=== PATIENT | male | born 1945 | race Caucasian/White ===

== ENCOUNTER 2016-09-03 08:58 | Inpatient (IN) | payer OTHER ==
[~2016-09-03] VITALS: Ht 180.3 cm; Wt 98.4 kg
[2016-09-03] MEDS: VITAMIN D 1,000 INTERNATIONAL UNITS TABLET PO SCH ×2 (09:00→21:08)
[2016-09-03] MEDS: VITAMIN B COMPLEX/VIT C CAP PO SCH (09:00)
[2016-09-03] MEDS ORDERED: ONDANSETRON 4MG/2ML VIAL (J2405) IV ONE (09:30)
[2016-09-03] MEDS: MORPHINE 2 MG/ML 1ML SYRINGE IV PRN ×2 (09:40→10:58)
[2016-09-03 10:05] LABS: BASO % 0.2 % (0.0-1.0); EOS % 0.3 % (0.0-3.0); LARGE UNSTAINED CELL # 0.1 K/mm3 (0.0-0.4); LARGE UNSTAINED CELL % 0.6 % (0.0-4.0); LYMPH # 1.4 K/mm3 (1.5-4.5); LYMPH % 8.7 % (24.0-44.0); MEAN CORPUSCULAR HEMOGLOBIN 31.5 pg (27.0-33.0); MEAN CORPUSCULAR HGB CONC 34.4 g/dl (32.0-36.5); MEAN CORPUSCULAR VOLUME 91.8 fl (80.0-96.0); MONO # 0.5 K/mm3 (0.0-0.8); MONO % 3.3 % (0.0-5.0); NEUTROPHILS # 13.2 K/mm3 (1.8-7.7); PLATELET COUNT, AUTOMATED 262 k/mm3 (150-450); RED CELL DISTRIBUTION WIDTH 13.2 % (11.5-14.5); WHITE BLOOD COUNT 15.2 K/mm3 (4.0-10.0)
[2016-09-03] MEDS ORDERED: METO100T PO ×2 (10:15→11:51)
[2016-09-03] MEDS ORDERED: XARE20TA PO (10:15)
[2016-09-03] MEDS ORDERED: VITATAB11 PO (10:15)
[2016-09-03] MEDS ORDERED: METF500T4 PO (10:15)
[2016-09-03] MEDS ORDERED: ATOR1TAB19 PO (10:15)
[2016-09-03] MEDS ORDERED: HYDR-3713 PO (10:15)
[2016-09-03] MEDS ORDERED: VITA200015 PO (10:15)
[2016-09-03] MEDS ORDERED: VALSARTAN-HCTZ PO (10:15)
[2016-09-03] MEDS ORDERED: GARL1CAP PO (10:15)
[2016-09-03] MEDS ORDERED: ASPI81CH PO (10:15)
[2016-09-03] MEDS ORDERED: CLON0.2T PO (10:15)
[2016-09-03] MEDS ORDERED: DIGO0.12 PO ×2 (10:15)
[2016-09-03] MEDS ORDERED: AMLO10TA2 PO (10:15)
[2016-09-03 10:17] LABS: ALBUMIN 3.7 GM/DL (3.2-5.2); ALBUMIN/GLOBULIN RATIO 1.23 (1.00-1.93); ALKALINE PHOSPHATASE 33 U/L (45-117); ALT/SGPT 32 U/L (12-78); ANION GAP 12 MEQ/L (8-16); AST/SGOT 17 U/L (15-37); BILIRUBIN,DIRECT < 0.1 MG/DL (0.0-0.2); BILIRUBIN,TOTAL 0.5 MG/DL (0.2-1.0); BLOOD UREA NITROGEN 19 MG/DL (7-18); CARBON DIOXIDE LEVEL 27 MEQ/L (21-32); CHLORIDE LEVEL 104 MEQ/L (98-107); GLOMERULAR FILTRATION RATE > 60.0 (>49); GLUCOSE, FASTING 174 MG/DL (80-110); POTASSIUM SERUM 3.8 MEQ/L (3.5-5.1); SODIUM LEVEL 143 MEQ/L (136-145); TOTAL PROTEIN 6.7 GM/DL (6.4-8.2)
--- NOTE | 2016-09-03 10:18 | REP ---
Portable chest: Single view. History: Swelling. Comparison study: Comparison chest x-ray March 26, 2015. Findings: The lungs are well inflated and clear. EKG monitoring electrodes are seen. Pleural angles are sharp. Cardiomediastinal silhouette is unremarkable and unchanged. Pulmonary vasculature is not increased Impression: . No active disease. Signed by Gume Mirza MD 09/03/2016 10:10 A
[2016-09-03 10:20] LABS: INR 1.5
--- NOTE | 2016-09-03 10:24 | REP ---
Right hip: two views. History: Swelling. Findings: AP and frog-leg views of the right hip demonstrate old posttraumatic deformity from healed mid shaft fracture of the right femur showing persistent apex lateral angulation. Vascular calcification is noted. The femoral head is smooth and rounded. There are some periarticular soft tissue calcifications at the superior margin of the hip joint and there is mild femoral acetabular spurring consistent with osteoarthritis. No acute fracture or bony destructive lesion seen. Impression: Mild right hip joint osteoarthritis. Periarticular soft tissue calcifications. Old healed fracture right femur. No acute bony abnormality. Signed by Gume Mirza MD 09/03/2016 01:13 P
--- NOTE | 2016-09-03 10:25 | REP ---
Right femur: Two views. History: Swelling. Findings: There is old post-traumatic deformity of the right femur due to an old healed mid shaft fracture. There is some persistent apex lateral angulation. Vascular calcification is noted. No soft tissue gas or mass lesion is seen. There is moderate osteoarthritis at the knee. No acute bony abnormality. Impression: No acute bony abnormality. Signed by Gume Mirza MD 09/03/2016 01:13 P
[2016-09-03 10:49] LABS: ERYTHROCYTE SEDIMENTATION RATE 5 mm/hr (0-20)
--- NOTE | 2016-09-03 10:49 | REP ---
Duplex extremity venous ultrasound: Right lower extremity History: Right thighs swelling. Question DVT, question pseudoaneurysm. Patient on anticoagulant therapy. No recent injury or procedure. Findings: The deep veins are anechoic and fully compressible from the groin to the popliteal fossa in the right lower extremity. Color flow imaging is homogeneous. Spectral Doppler interrogation demonstrates intact respiratory variation in flow and normal manual augmentation of flow. There is no evidence of deep vein thrombosis. There is a 5.3 x 1.5 x 3.7 cm Rudd's cyst in the posterior popliteal soft tissues. Also noted in the proximal thigh in the area of swelling is a hypoechoic irregularly shaped collection consistent with hematoma. This measures 12.1 x 3.2 x 4.7 cm. It does not appear to communicate with the femoral artery. No evidence of pseudoaneurysm. Impression: 1. Negative right lower extremity duplex venous ultrasound. No evidence of deep vein thrombosis. 2. 12.1 x 4.7 x 3.2 cm hematoma in the proximal thigh soft tissues. No evidence of pseudoaneurysm. 3. Rudd's cyst. Signed by Gume Mirza MD 09/03/2016 10:40 A
[2016-09-03] MEDS ORDERED: MORPHINE 4 MG/ML 1ML SYRINGE As Ordered ONE (11:25)
[2016-09-03] MEDS ORDERED: DIOV160T8 PO (11:39)
[2016-09-03] MEDS ORDERED: PROBCAP4 PO (11:39)
[2016-09-03] MEDS ORDERED: MELA3TAB PO (11:42)
[2016-09-03] MEDS ORDERED: ACET50TAOT PO (11:42)
[2016-09-03] MEDS ORDERED: DIGOXIN 0.125 MG TAB PO ONE (11:45)
[2016-09-03] MEDS ORDERED: METOPROLOL TARTRATE 100 MG TAB PO ONE (11:45)
[2016-09-03] MEDS ORDERED: VALSARTAN 80 MG TAB (DIOVAN) PO ONE (11:45)
[2016-09-03] MEDS ORDERED: MORPHINE 4 MG/ML 1ML SYRINGE IV ONE (11:45)
[2016-09-03] MEDS ORDERED: amLODIPine 5 MG TAB PO ONE (11:45)
[2016-09-03] MEDS ORDERED: cloNIDine 0.2 MG TAB PO ONE (11:45)
[2016-09-03] MEDS ORDERED: hydroCHLOROthiazide 25 MG TAB PO ONE (11:45)
[2016-09-03] MEDS ORDERED: ASPI1TAB PO (11:51)
[2016-09-03] MEDS ORDERED: METF-415 PO (11:51)
[2016-09-03] MEDS ORDERED: ONDANSETRON 4MG/2ML VIAL (J2405) IV PRN (12:00)
[2016-09-03] MEDS: HumaLOG INSULIN (NovoLOG) PER UNIT SC SCH ×3 (12:00→21:22)
[2016-09-03] MEDS ORDERED: GLUCAGON FOR INJ 1 MG VIAL (J1610) SC PRN (12:00)
[2016-09-03] MEDS ORDERED: DEXTROSE 50% 50 ML SYRINGE IV PRN (12:00)
[2016-09-03] MEDS ORDERED: GLUCOSE 4 GM CHEW TABLET PO PRN (12:00)
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
[2016-09-03 15:31] VITALS: BP 107/60
[2016-09-03 16:18] VITALS: BP 108/63
[2016-09-03] MEDS: NORCO, ANEXSIA 5/325MG TABLET (HYDROcodone/ACETAMINOPHEN) PO PRN ×2 (16:48→23:32)
[2016-09-03] MEDS ORDERED: MORPHINE 2 MG/ML 1ML SYRINGE IV PRN (20:00)
[2016-09-03 20:41] VITALS: BP 123/62
[2016-09-03] MEDS: LACTOBACILLUS ACIDOPHILUS CAP (BACID) PO SCH (21:08)
[2016-09-03] MEDS: amLODIPine 10 MG TAB PO SCH (21:09)
[2016-09-03] MEDS: METOPROLOL TARTRATE 100 MG TAB PO SCH (21:09)
[2016-09-03] MEDS: ATORVASTATIN 10 MG TAB PO SCH (21:09)
[2016-09-03] MEDS: cloNIDine 0.2 MG TAB PO SCH (21:09)
[2016-09-03] MEDS ORDERED: SLF 3 ML SYR IV PRN (21:15)
[2016-09-03] MEDS: SLF 3 ML SYR IV SCH (22:33)
[2016-09-03 23:35] VITALS: BP 129/60
[2016-09-04] MEDS: NORCO, ANEXSIA 5/325MG TABLET (HYDROcodone/ACETAMINOPHEN) PO PRN ×2 (04:29→10:28)
[2016-09-04 04:32] LABS: MEAN CORPUSCULAR HEMOGLOBIN 30.9 pg (27.0-33.0); MEAN CORPUSCULAR HGB CONC 34.1 g/dl (32.0-36.5); MEAN CORPUSCULAR VOLUME 90.6 fl (80.0-96.0); RED CELL DISTRIBUTION WIDTH 13.2 % (11.5-14.5); WHITE BLOOD COUNT 13.8 K/mm3 (4.0-10.0)
[2016-09-04 04:55] LABS: CALCIUM LEVEL 8.3 MG/DL (8.8-10.2); CREATININE FOR GFR 1.38 MG/DL (0.70-1.30); GLOMERULAR FILTRATION RATE 54.5 (>49); POTASSIUM SERUM 4.1 MEQ/L (3.5-5.1)
[2016-09-04 05:01] VITALS: BP 104/58
[2016-09-04] MEDS: SLF 3 ML SYR IV SCH ×3 (06:12→21:27)
[2016-09-04 07:20] VITALS: BP 140/97
[2016-09-04] MEDS: HumaLOG INSULIN (NovoLOG) PER UNIT SC SCH ×4 (08:45→21:00)
[2016-09-04] MEDS: VITAMIN D 1,000 INTERNATIONAL UNITS TABLET PO SCH ×2 (08:46→21:21)
[2016-09-04] MEDS: METOPROLOL TARTRATE 100 MG TAB PO SCH ×2 (08:46→21:26)
[2016-09-04] MEDS: cloNIDine 0.2 MG TAB PO SCH ×2 (08:46→21:27)
[2016-09-04] MEDS: DIGOXIN 0.125 MG TAB PO SCH (08:47)
[2016-09-04] MEDS ORDERED: VALSARTAN 80 MG TAB (DIOVAN) PO SCH (09:00)
[2016-09-04] MEDS ORDERED: hydroCHLOROthiazide 25 MG TAB PO SCH (09:00)
[2016-09-04] MEDS: VITAMIN B COMPLEX/VIT C CAP PO SCH (09:50)
[2016-09-04 12:00] VITALS: BP 132/88
--- NOTE | 2016-09-04 13:54 | IPNPDOC ---
Subjective Date Seen The patient was seen on 09/04/16. Subjective Chief Complaint/HPI The patient is a 70-year-old male admitted with a reason for visit of Hematoma. General: Denies: Chills, Night Sweats Constitutional: Denies: Chills, Fever Eyes: Denies: Pain, Vision change ENT: Denies: Ear Pain, Head Aches Skin: Denies: Lesions, Rash Pulmonary: Denies: Cough, Dyspnea Cardiovascular: Denies: Chest Pain, Palpitations Gastrointestinal: Denies: Nausea, Vomiting Genitourinary: Denies: Dysuria, Frequency Hematologic: Reports: Bruising Musculoskeletal: Reports: Leg Pain Objective Physical Examination General Exam: Positive: Alert, Cooperative, Mild Distress ENT Exam: Positive: Atraumatic, Mucous membr. moist/pink Neck Exam: Negative: JVD Chest Exam: Positive: Clear to auscultation, Normal air movement Heart Exam: Positive: Irregular Rhythm, Tachycardic Telemetry: Positive: Atrial fibrillation Abdomen Exam: Positive: Soft, Negative: Tenderness Extremity Exam: Positive: Other (RLE swelling markedly improved compared to yesterday. Patient with improved ROM on hip and knee flexion.), Swelling Assessment /Plan Plan/VTE VTE Prophylaxis Ordered?: Yes (SCDs) Plan Right lower extremity hematoma Ultrasound of the right lower extremity, as well as x-ray imaging noted The patient neurovascularly intact distally on the right lower extremity The patient's blood pressure remains stable Orthopedic surgery consult appreciated At this time we will hold the patient's Xarelto and aspirin given the findings of hematoma. I have discussed with the patient the increased risk of stroke related with withholding anticoagulation and anti-platelet therapy at this time and he has verbalized understanding of the same. The patient's right lower extremity swelling appears much improved today, the patient will start physical therapy today as per orthopedic surgery recommendation We will continue to monitor his hemoglobin level as it has dropped 2.5 gram's since yesterday-the patient remains asymptomatic and complains of no shortness of breath, chest pain, or lightheadedness/dizziness Atrial fibrillation with rapid ventricular rate Heart rate much better controlled today with heart rate between 70s and 90s Continue metoprolol and digoxin We will withhold Xarelto secondary to above The patient does follow with Dr. Delong of cardiology as an outpatient, and recently saw him 6 weeks ago. Acute kidney injury Serum creatinine noted to mildly elevated at 1.3 today Will hold nephrotoxins Encourage by mouth intake of fluids We will recheck BMP in the a.m. Hypertension Continue clonidine, Norvasc History of TIA/CVA Continue statin, will hold aspirin at this time secondary to above Non-insulin dependent diabetes mellitus Continue insulin sliding scale Dyslipidemia Continue statin History of chronic knee and back pain Continue when necessary narcotics DVT prophylaxis-SCDs Disposition: We will continue to monitor the patient's hemoglobin level, and see how the patient does with physical therapy. Anticipate discharge in 24 hours pending clinical improvement and clearance by PT. VS, I&O, 24H, Fishbone Vital Signs/I&O Vital Signs Date Time Temp Pulse Resp B/P Pulse Ox O2 Delivery O2 Flow Rate FiO2 09/04/16 12:00 98.6 80 20 132/88 97 Room Air I&O- Last 24 Hours up to 6 AM 09/04/16 06:00 Intake Total 840 ml Output Total 800 ml Balance 40 ml Laboratory Data 24H LABS Laboratory Tests 2 09/03/16 18:07: Bedside Glucose (Misc Panel) 115 09/03/16 21:12: Bedside Glucose (Misc Panel) 121H 09/04/16 04:21: Anion Gap 7L, Blood Urea Nitrogen 30#H, Creatinine 1.38H, Sodium Level 145, Potassium Level 4.1, Chloride Level 106, Carbon Dioxide Level 32, Calcium Level 8.3L, Glomerular Filtration Rate 54.5 09/04/16 11:44: Bedside Glucose (Misc Panel) 117H CBC/BMP Laboratory Tests 09/03/16 14:56 09/03/16 21:07 09/04/16 04:21 Calcium Level 8.3 L, Red Blood Count 3.40 L, Mean Corpuscular Volume 90.6, Mean Corpuscular Hemoglobin 30.9, Mean Corpuscular Hemoglobin Concent 34.1, Red Cell Distribution Width 13.2 09/04/16 08:53 Microbiology Microbiology 09/03/16 Blood Culture - Preliminary, Resulted No growth after 24 hours . All specim... 09/03/16 Blood Culture - Preliminary, Resulted No growth after 24 hours . All specim... ROXANE VIDALES MD Sep 04, 2016 13:54
[2016-09-04 16:00] VITALS: BP 128/70
[2016-09-04] MEDS ORDERED: NS 1,000 ML IV SCH (18:00)
[2016-09-04 20:00] VITALS: BP 121/55; PULSE 126
[2016-09-04] MEDS: ATORVASTATIN 10 MG TAB PO SCH (21:21)
[2016-09-04] MEDS: LACTOBACILLUS ACIDOPHILUS CAP (BACID) PO SCH (21:21)
[2016-09-04] MEDS: amLODIPine 10 MG TAB PO SCH (21:27)
[2016-09-04 23:59] VITALS: BP 133/69
[2016-09-05] VITALS: PULSE 86
[2016-09-05] MEDS: NORCO, ANEXSIA 5/325MG TABLET (HYDROcodone/ACETAMINOPHEN) PO PRN (00:09)
[2016-09-05] MEDS: SLF 3 ML SYR IV SCH (00:14)
[2016-09-05 04:00] VITALS: BP 133/66; PULSE 77
[2016-09-05 05:42] LABS: MEAN CORPUSCULAR HEMOGLOBIN 31.7 pg (27.0-33.0); MEAN CORPUSCULAR HGB CONC 34.3 g/dl (32.0-36.5); MEAN CORPUSCULAR VOLUME 92.4 fl (80.0-96.0); WHITE BLOOD COUNT 13.4 K/mm3 (4.0-10.0)
[2016-09-05 05:44] VITALS: BP 133/66
[2016-09-05 05:57] LABS: ANION GAP 6 MEQ/L (8-16); BLOOD UREA NITROGEN 22 MG/DL (7-18); CARBON DIOXIDE LEVEL 30 MEQ/L (21-32); CHLORIDE LEVEL 111 MEQ/L (98-107); CREATININE FOR GFR 0.81 MG/DL (0.70-1.30); GLOMERULAR FILTRATION RATE > 60.0 (>49); GLUCOSE, FASTING 108 MG/DL (80-110); POTASSIUM SERUM 4.1 MEQ/L (3.5-5.1); SODIUM LEVEL 147 MEQ/L (136-145)
[2016-09-05 07:20] VITALS: BP 134/67
[2016-09-05] MEDS: HumaLOG INSULIN (NovoLOG) PER UNIT SC SCH (08:18)
[2016-09-05] MEDS: cloNIDine 0.2 MG TAB PO SCH (08:18)
[2016-09-05] MEDS: VITAMIN D 1,000 INTERNATIONAL UNITS TABLET PO SCH (08:19)
[2016-09-05] MEDS: DIGOXIN 0.125 MG TAB PO SCH (08:19)
[2016-09-05] MEDS: METOPROLOL TARTRATE 100 MG TAB PO SCH (08:19)
[2016-09-05] MEDS: VITAMIN B COMPLEX/VIT C CAP PO SCH (08:19)
--- NOTE | 2016-09-05 14:07 | DS.PDOC ---
Discharge Summary General Date of Admission Sep 03, 2016 at 12:00 Date of Discharge Sep 05, 2016 at 12:58 Specialist/Consultants Involve Dr. Mandeep Felix of [facility] Discharge Summary PROCEDURES PERFORMED DURING STAY: None. ADMITTING DIAGNOSES: 1. . Right lower extremity hematoma 2. . Acute kidney injury 3. . DISCHARGE DIAGNOSES: 1. . Right lower extremity hematoma 2. . Acute kidney injury 3. . COMPLICATIONS/CHIEF COMPLAINT: Hematoma. HISTORY OF PRESENT ILLNESS: . 70-year-old male with past medical history of [id number] diabetes, hypertension, obesity, atrial fibrillation on Xarelto, dyslipidemia, chronic knee pain, and TIA/CVA presented to the ER with increasing pain in his right leg. The patient states that he was leaning against a rail yesterday while trying to push away a skunk with a shovel from his property. The patient states that he subsequently developed intense pain along his right thigh. The patient subsequently presented to the ER for further evaluation. The patient denies any trauma or falls. In the ER, the patient was noted to have a 12.1 x 3.2 x 4.7 centimeter hematoma in the proximal thigh on the right. The ultrasound of the extremity did not reveal any evidence of pseudoaneurysm or underlying DVT. An x-ray of the right hip and femur did not reveal any acute fractures. The patient's blood pressure was noted to be stable as well as his hemoglobin level. The patient will be admitted under the hospitalist service for observation of the hematoma. During the patient's stay in the hospital here, he was evaluated by Dr. Felix of orthopedic surgery for the hematoma in his right lower extremity. Dr. Felix recommended that we observe the patient's right lower extremity, and indicated there was no signs of compartment syndrome. The patient was admitted to the stepdown unit where the right lower extremity hematoma was monitored over the next 48 hours. During this time, the patient's proximal thigh notably improved, and he was able to ambulate in physical therapy did clear the patient to go home. The patient remained hemodynamically stable, did not have any complaints of shortness of breath, chest pain, palpitations, lightheadedness/dizziness. The patient's hemoglobin count did drop over the first 24 hours, but I do think this was a combination of dilution secondary to volume repletion and mild blood loss from the hematoma. Of note, during the patient's hospitalization his aspirin and Xarelto medications were held secondary to the hematoma. I did discuss the risks of increased possibility of stroke given the holding of his antiplatelet and anti-coagulation therapy. However, after discussing the risks and benefits associated with this, the patient has acknowledged that holding this therapy would be in the best interest given the patient's current hematoma , and the possibility of the hematoma expanding and possibly resulting in compartment syndrome if antiplatelet/anticoagulation therapy was resumed too soon. At this time, I have advised the patient to follow-up with his primary care physician and sheet sewer within the next 7 days to reassess the patient' s right lower extremity hematoma to ascertain when to restart the aspirin and Xarelto therapies. DISCHARGE MEDICATIONS: Please see below. ALLERGIES: Please see below. PHYSICAL EXAMINATION ON DISCHARGE: VITAL SIGNS: Please see below. General Exam: Positive: Alert, Cooperative, Mild Distress ENT Exam: Positive: Atraumatic, Mucous membr. moist/pink Neck Exam: Negative: JVD Chest Exam: Positive: Clear to auscultation, Normal air movement Heart Exam: Positive: Irregular Rhythm, Tachycardic Telemetry: Positive: Atrial fibrillation Abdomen Exam: Positive: Soft, Negative: Tenderness Extremity Exam: Positive: Other (RLE swelling markedly improved compared to yesterday. Patient with improved ROM on hip and knee flexion.), Swelling LABORATORY DATA: Please see below. IMAGING: Duplex extremity venous ultrasound: Right lower extremity History: Right thighs swelling. Question DVT, question pseudoaneurysm. Patient on anticoagulant therapy. No recent injury or procedure. Findings: The deep veins are anechoic and fully compressible from the groin to the popliteal fossa in the right lower extremity. Color flow imaging is homogeneous. Spectral Doppler interrogation demonstrates intact respiratory variation in flow and normal manual augmentation of flow. There is no evidence of deep vein thrombosis. There is a 5.3 x 1.5 x 3.7 cm Rudd's cyst in the posterior popliteal soft tissues. Also noted in the proximal thigh in the area of swelling is a hypoechoic irregularly shaped collection consistent with hematoma. This measures 12.1 x 3.2 x 4.7 cm. It does not appear to communicate with the femoral artery. No evidence of pseudoaneurysm. Impression: 1. Negative right lower extremity duplex venous ultrasound. No evidence of deep vein thrombosis. 2. 12.1 x 4.7 x 3.2 cm hematoma in the proximal thigh soft tissues. No evidence of pseudoaneurysm. 3. Rudd's cyst. X-ray imaging of the hip and femur with no acute fractures noted. PROGNOSIS: Medically stable at this time ACTIVITY: As tolerated. DIET: . 2 g low sodium diet DISCHARGE PLAN: DISPOSITION: 01 Home, Self-Care. DISCHARGE INSTRUCTIONS: 1. . Follow-up with primary care physician and sheet sewer within 7 days for further evaluation of right lower extremity hematoma, and further assessment on when to resume antiplatelet and anticoagulation therapy. 2. . Patient advised to return to the ER if hematoma expands, or he experiences an increase in pain, or any neurovascular complications such as numbness, tingling, loss of distal pulse DISCHARGE CONDITION: Stable. TIME SPENT ON DISCHARGE: Greater than 30 minutes. Vital Signs/I&Os Vital Signs Date Time Temp Pulse Resp B/P Pulse Ox O2 Delivery O2 Flow Rate FiO2 09/05/16 08:19 80 09/05/16 07:20 96.4 20 134/67 98 Room Air I&O- Last 24 Hours up to 6 AM 09/05/16 06:00 Intake Total 2680 ml Output Total 1600 ml Balance 1080 ml Laboratory Data Labs 24H Laboratory Tests 2 09/04/16 17:03: Bedside Glucose (Misc Panel) 130H 09/04/16 21:31: Bedside Glucose (Misc Panel) 133H 09/05/16 04:49: Anion Gap 6L, Blood Urea Nitrogen 22H, Creatinine 0.81, Sodium Level 147H, Potassium Level 4.1, Chloride Level 111H, Carbon Dioxide Level 30, Calcium Level 8.0L, Glomerular Filtration Rate > 60.0 CBC/BMP Laboratory Tests 09/05/16 04:49 Calcium Level 8.0 L, Red Blood Count 3.15 L, Mean Corpuscular Volume 92.4, Mean Corpuscular Hemoglobin 31.7, Mean Corpuscular Hemoglobin Concent 34.3, Red Cell Distribution Width 13.0 FSBS Laboratory Tests Test 09/04/16 17:03 09/04/16 21:31 Range/Units Bedside Glucose (Misc Panel) 130 133 80-115 MG/DL Microbiology Microbiology 09/03/16 Blood Culture - Preliminary, Resulted No Growth after 48 hours. All Specime... 09/03/16 Blood Culture - Preliminary, Resulted No Growth after 48 hours. All Specime... Discharge Medications Scheduled (Garlic) 1,000 Mg Cap 1,000 MG PO BID (Reported) (Diovan Hct 160-25 mg) 1 Tab Tab 1 TAB PO DAILY (Reported) Amlodipine Besylate (Amlodipine Besylate) 10 Mg Tab 10 MG PO QPM (Reported) TAKES WITH DINNER Atorvastatin Calcium (Atorvastatin Calcium) 10 Mg Tab 10 MG PO QPM (Reported) TAKES WITH DINNER B1/B2/B3/B5/B6 (Vitamin B Complex) 1 Tab Tab 1 TAB PO DAILY (Reported) Cholecalciferol (Vitamin D) 2,000 Unit Tab 2,000 UNIT PO BID (Reported) Clonidine Hydrochloride (Clonidine HCl) 0.2 Mg Tab 2 TAB PO BID (Reported) Digoxin (Digoxin) 0.125 Mg Tab 1 TAB PO DAILY (Reported) Lactobacillus Acidophilus (Probiotic) 1 Cap Cap 1 CAP PO QPM (Reported) TAKES WITH DINNER Melatonin (Melatonin) 3 Mg Tab 3 MG PO QHS (Reported) Metformin Hydrochloride (Metformin HCl ER) 500 Mg Tab 500 MG PO QAM (Reported) Metformin Hydrochloride (Metformin HCl ER) 1,000 Mg Tab 1,000 MG PO QPM ( Reported) Metoprolol Tartrate (Metoprolol Tartrate) 100 Mg Tab 100 MG PO BID (Reported) Scheduled PRN Acetaminophen (Acetaminophen) 500 Mg Tab 500 MG PO Q6H PRN PRN PAIN (Reported) Acetaminophen/Hydrocodone (Hydrocodone/Acetaminophen 5-325 mg) 1 Tab Tab 1 TAB PO Q6H PRN PRN PAIN (Reported) Allergies Coded Allergies: Iodine (Verified Allergy, Intermediate, RASH, 09/03/16) Banana (Verified Allergy, Unknown, 09/03/16) ROXANE VIDALES MD Sep 05, 2016 14:07
== END 2016-09-05 12:58 | disposition home or self-care (01) | DRG 556 ==
LOC: EDBD 08:58 → M ED 09:14 → M ED INP 12:00 → M PCU 16:04
PROVIDERS: ADMIT Internal Medicine; ATTEND Internal Medicine
DX: M79.81 Nontraumatic hematoma of soft tissue (principal); N17.9 Acute kidney failure, unspecified; E11.9 Type 2 diabetes mellitus without complications; I10 Essential (primary) hypertension; E66.9 Obesity, unspecified; I48.91 Unspecified atrial fibrillation; M54.9 Dorsalgia, unspecified; M25.569 Pain in unspecified knee; E78.5 Hyperlipidemia, unspecified; I25.10 Atherosclerotic heart disease of native coronary artery without angina pectoris; Z86.73 Personal history of transient ischemic attack (TIA), and cerebral infarction without residual deficits; Z79.82 Long term (current) use of aspirin; Z79.84 Long term (current) use of oral hypoglycemic drugs; Z79.899 Other long term (current) drug therapy; Z88.8 Allergy status to other drugs, medicaments and biological substances; Z91.018 Allergy to other foods; Z68.30 Body mass index [BMI] 30.0-30.9, adult

== ENCOUNTER 2017-10-13 10:21 | Day surgery (SDC) | payer OTHER ==
[2017-10-13] MEDS: NS 1,000 ML IV (10:30)
[2017-10-13] MEDS ORDERED: PROPOFOL 200 MG/20 ML VIAL As Ordered (10:56)
== END 2017-10-13 12:10 | disposition home or self-care (01) ==
LOC: M OPP 10:21
DX: Z12.11 Encounter for screening for malignant neoplasm of colon (principal); D12.3 Benign neoplasm of transverse colon; K64.0 First degree hemorrhoids; K57.30 Diverticulosis of large intestine without perforation or abscess without bleeding; I48.91 Unspecified atrial fibrillation; I10 Essential (primary) hypertension; I25.10 Atherosclerotic heart disease of native coronary artery without angina pectoris; E78.5 Hyperlipidemia, unspecified; E11.9 Type 2 diabetes mellitus without complications; M19.90 Unspecified osteoarthritis, unspecified site; J44.9 Chronic obstructive pulmonary disease, unspecified; G47.30 Sleep apnea, unspecified; R06.83 Snoring; F17.210 Nicotine dependence, cigarettes, uncomplicated; Z88.3 Allergy status to other anti-infective agents; Z91.018 Allergy to other foods; Z79.84 Long term (current) use of oral hypoglycemic drugs; Z79.01 Long term (current) use of anticoagulants; Z79.899 Other long term (current) drug therapy
CPT/HCPCS: 45380

== ENCOUNTER 2020-10-07 14:39 | Inpatient (IN) | payer MEDICARE, OTHER ==
[~2020-10-07] VITALS: Ht 180.3 cm; Wt 89.1 kg
[~2020-10-07 14:39] MED LIST: ACET500T15 PO; AMLO1TAB25 PO; ASPI81CH49 PO; ASPI81TA26 PO; ATOR1TAB19 PO; CLON0.2T PO; DIGO0.12 PO; DIOV160T9 PO; GARL10004 PO; HYDR-3713 PO; MELA3TAB70 PO; METF-415 PO; METF-838 PO; METO100T5 PO; PROBCAP4 PO; VALSARTAN-HCTZ PO; VITA200015 PO; VITATAB11 PO; XARE20TA PO
--- NOTE | 2020-10-07 16:13 | REP ---
INDICATION: R/O COMPARTMENT SYNDROME COMPARISON: None. TECHNIQUE: Real time compression and duplex Doppler interrogation of the left lower extremity deep venous system is performed. FINDINGS: The left common femoral, superficial femoral and popliteal veins are fully compressible with transducer pressure and demonstrate normal spontaneous and phasic flow, without evidence of deep venous thrombosis. Popliteal cyst measures 5.3 x 2.7 x 1.6 cm. Heterogeneous complex mass in the left thigh soft tissues is intramuscular and measures 15.5 x 5.5 x 4.7 cm. This probably represents an intramuscular hematoma. IMPRESSION: No evidence of deep venous thrombosis of the left lower extremity femoral popliteal venous system. Popliteal cyst measures 5.3 x 2.7 x 1.6 cm. Heterogeneous complex mass in the left thigh soft tissues is intramuscular and measures 15.5 x 5.5 x 4.7 cm. This probably represents an intramuscular hematoma. <Electronically signed by Fco Hughes > 10/07/20 [id number]
[2020-10-07 19:45] LABS: BASO % 0.3 % (0.0-1.0); EOS # 0.1 10^3/uL (0.0-0.5); EOS % 0.4 % (0.0-3.0); HEMATOCRIT 38.3 % (42.0-52.0); HEMOGLOBIN 12.8 g/dl (13.5-17.5); LYMPH # 1.5 10^3/uL (1.5-5.0); LYMPH % 10.5 % (24.0-44.0); MEAN CORPUSCULAR HEMOGLOBIN 31.1 pg (27.0-33.0); MEAN CORPUSCULAR HGB CONC 33.4 g/dl (32.0-36.5); MEAN CORPUSCULAR VOLUME 93.2 fl (80.0-96.0); MONO # 0.9 10^3/uL (0.0-0.8); MONO % 6.3 % (2.0-8.0); NEUTROPHILS # 11.4 10^3/uL (1.5-8.5); NEUTROPHILS % 81.9 % (36.0-66.0); PLATELET COUNT, AUTOMATED 258 10^3/uL (150-450); RED BLOOD COUNT 4.11 10^6/uL (4.30-6.10); WHITE BLOOD COUNT 13.9 10^3/uL (4.0-10.0)
[2020-10-07 19:56] LABS: INR 1.2; PARTIAL THROMBOPLASTIN TIME 26.1 SECONDS (24.2-38.5); PROTHROMBIN TIME 15.4 SECONDS (12.5-14.3)
[2020-10-07] MEDS ORDERED: NS 1,000 ML IV ONE (20:00)
[2020-10-07 20:06] LABS: ERYTHROCYTE SEDIMENTATION RATE 8 mm/hr (0-20)
[2020-10-07 20:09] LABS: ALBUMIN 3.4 GM/DL (3.2-5.2); BILIRUBIN,DIRECT 0.2 MG/DL (0.0-0.2); BILIRUBIN,TOTAL 0.5 MG/DL (0.2-1.0); C REACTIVE PROTEIN QUANTITATIV 0.95 MG/DL (0.00-0.30); TOTAL PROTEIN 6.3 GM/DL (6.4-8.2)
[2020-10-07] MEDS ORDERED: GARL1000 PO (20:33)
[2020-10-07] MEDS ORDERED: VITATAB73 PO (20:33)
[2020-10-07] MEDS ORDERED: DIGO0.123 PO (20:33)
[2020-10-07] MEDS ORDERED: LOSA50TA5 PO (20:33)
[2020-10-07] MEDS ORDERED: HYDR-4514 PO (20:33)
[2020-10-07] MEDS ORDERED: D31000TA2 PO (20:33)
--- NOTE | 2020-10-07 20:45 | REPVR ---
PROCEDURE INFORMATION: Exam: CT Left Lower Extremity Without Contrast; Thigh Exam date and time: 10/07/2020 8:08 PM Age: 74 years old Clinical indication: Swelling, leg or foot; Additional info: Swelling, hematoma TECHNIQUE: Imaging protocol: CT of the Left lower extremity without contrast was performed. Exam focused on the thigh. Radiation optimization: All CT scans at this facility use at least one of these dose optimization techniques: automated exposure control; mA and/or kV adjustment per patient size (includes targeted exams where dose is matched to clinical indication); or iterative reconstruction. COMPARISON: CR Femur 09/03/2016 9:54 AM FINDINGS: Bones/joints: There is no fracture, dislocation, or bony destructive changes involving the left hip, left femur, or left knee. There is severe osteoarthritis of the left knee, with degenerative changes that are most severe in the medial compartment. There is an 11 mm ossified body in the posterosuperior aspect of the intercondylar notch. There are 6 mm, 6 mm, an 8 mm ossified bodies in the left medial collateral ligament bursa. There is chondrocalcinosis in the lateral compartment of the left knee. A small left knee joint effusion is present. Soft tissues: There is a 10.8 cm x 7.7 cm x 22.3 cm acute hematoma in the proximal two thirds of the anterior compartment of the left thigh, predominantly within the left rectus femoris muscle. There is low-attenuation in the left iliopsoas and rectus femoris muscles, which may represent muscle strains or contusions. There is a 3.4 cm x 1.6 cm x 5.9 cm left popliteal cyst. Vasculature: There are extensive atherosclerotic calcifications. Limited bowel: There is severe sigmoid diverticulosis. The bowel was not fully imaged. Reproductive: The prostate gland is enlarged and measures 3.2 cm x 5.4 cm x 4.5 cm and the volume of the prostate gland is increased and measures 40.7 mL. There are calcifications in the prostate. Other findings: In the miller helper view, there is a chronic healed fracture deformity of the right mid femoral diaphysis, which has healed with varus angulation of the distal component of the fracture. Right total knee arthroplasty hardware is also seen in the miller helper view. IMPRESSION: 1. 10.8 cm x 7.7 cm x 22.3 cm acute hematoma in the proximal two thirds of the anterior compartment of the left thigh, predominantly within the left rectus femoris muscle. 2. Low-attenuation in the left iliopsoas and rectus femoris muscles, which may represent muscle strains or contusions. 3. Severe osteoarthritis of the left knee, ossified bodies in the left knee, and a small left knee joint effusion. 4. Severe sigmoid diverticulosis. 5. Enlarged prostate. Electronically signed by: Ras Abraham On 10/07/2020 20:46:31 PM
--- NOTE | 2020-10-07 21:10 | CR.PDOC ---
General Date of Consultation: Oct 07, 2020 Consultation REASON FOR CONSULTATION/CHIEF COMPLAINT: Concern for left thigh compartment syndrome HISTORY OF PRESENT ILLNESS: Yesterday evening, between 2100 and 2200h, the patient was moving materials when he lost his balance and impacted his thigh into a heavy duty metal table. He had pain and discomfort. He reports a history of thigh compartment syndrome in the past, where he denies any surgical intervention was performed. He stated that his thigh was swelling and he was concerned about developing compartment syndrome, so he presented to the ED for evaluation at around 1500h today. He is known to be on xarelto. He took this last on Wednesday evening, around 1900h. He did not take it today, but he took his ASA. He did report to the ED as he believed his thigh was getting larger. He does state that the skin is not "shiny" and tense like it was during his last episode of CS. The ED ordered an US of the thigh to r/o compartment syndrome, which showed a large hematoma, intramuscular. ALLERGIES: Please see below. PAST MEDICAL/SURGICAL HISTORY: To fibrillation on Xarelto Hypertension Hec-cxabkac-dznjhwyxh diabetes COPD Umbilical hernia repair Right knee replacement Endorses history of compartment syndrome affecting his left thigh however chart review shows it was perhaps his right thigh SOCIAL HISTORY: Endorses smoking Endorses drinking wine socially Denies illicit drug use FAMILY HISTORY: Reviewed and none contributory to this admission ALLERGIES: Please see below. REVIEW OF SYSTEMS: 10 point review of systems complete all negative otherwise stated in HPI HOME MEDICATIONS: Please see below. PHYSICAL EXAMINATION: VITAL SIGNS: Please see below. GENERAL APPEARANCE: Patient is alert and orientated. Dressed comfortably. No acute distress. HEENT: Normocephalic, Atraumatic RESPIRATORY: symmetric chest expansion CARDIOVASCULAR: palpable PT and DP pulses, bilaterally NEUROLOGICAL: sensation intact and comparable bilaterally to all foot distributions EXTREMITIES: on inspection, the right thigh shows a larger diametre compared to the left. The thigh shows tension anterolaterally. The thigh is compressible circumferentially. There is discomfort with this, but no disproportionate pain. The patient is able to flex and extend the ankle, actively. Passively, I was able to flex and extend the patients knee within a range of 0-45 degrees, without any pain or discomfort. Once the range of motion was increased above this the patient started to get pain and tightness in the anterior thigh. This was not disproportionate pain. There is no bruising to the skin anteriorly. Initial examination completed at ~1945 Patient reevaluated at 2114 Patient comfortable and in NAD. No change in signs or symptoms. Grossly NVI to Right lower extremity with no temperature difference between feet on palpation. Palpable PT and DP pulses. Diameter marked approximately mid upper 2/3rd of thigh with tape measure 60 cm, roughly. No concern for evolving compartment syndrome at this time. This is roughly 24 h post injury. Patient reevaluated at 2250 Patient sleeping in his bed and in no acute distress. No changes in signs or symptoms. Grossly neurovascularly intact. Right lower extremity with no temperature difference between feet on palpation. Palpable posterior tibial and dorsalis pedis pulses. Diameter marked approximately mid upper two thirds of 5, with tape measure 60 cm, roughly. No concern for evolving compartment syndrome at this time. The patient is over 24 hours post injury at this time. He will be reevaluated in the morning. LABORATORY DATA: Please see below. Imaging: US - No evidence of deep venous thrombosis of the left lower extremity femoral popliteal venous system. Popliteal cyst measures 5.3 x 2.7 x 1.6 cm. Heterogeneous complex mass in the left thigh soft tissues is intramuscular and measures 15.5 x 5.5 x 4.7 cm. This probably represents an intramuscular hematoma CT Scan - Pt reportedly has a contrast allergy, so this was not utilized. 1. 10.8 cm x 7.7 cm x 22.3 cm acute hematoma in the proximal two thirds of the anterior compartment of the left thigh, predominantly within the left rectus femoris muscle. 2. Low-attenuation in the left iliopsoas and rectus femoris muscles, which may represent muscle strains or contusions. ASSESSMENT/PLAN: 1. The patient shows findings consistent with a large intramuscular hematoma to the anterior thigh. He has had a history of left thigh compartment syndrome treated non operatively. The hematoma is likely associated with his medication xarelto. This is currently not being taken, though he has taken ASA today. He is comfortable and cooperative with the exam and his thigh, though tight, is compressible. I am able to passively flex and extend his knee in a 45 degree arc ROM without pain or discomfort. Deeper flexion causes pain and discomfort, most likely associated with the hematoma. At this point, clinically, the patient does not have a compartment syndrome, but he is still at risk for developing a compartment syndrome. The risks of a prophylactic fasciotomy outweigh the benefits at this time and I do not think it is indicated based on his presentation. He will be admitted for Observation for risk of developing a compartment syndrome. I have evaluated him at approximately 1930. I will reevaluate the patient serially this evening. Vital Signs/I&O Vital Signs Date Time Temp Pulse Resp B/P (MAP) Pulse Ox O2 Delivery O2 Flow Rate FiO2 10/07/20 17:33 10/07/20 14:40 98.1 86 18 100 Room Air Laboratory Data Labs 24H Laboratory Tests 2 10/07/20 19:37: Immature Granulocyte % (Auto) 0.6, Neutrophils (%) (Auto) 81.9H, Lymphocytes (%) (Auto) 10.5L, Monocytes (%) (Auto) 6.3, Eosinophils (%) (Auto) 0.4, Basophils (%) (Auto) 0.3, Neutrophils # (Auto) 11.4H, Lymphocytes # (Auto) 1.5, Monocytes # (Auto) 0.9H, Eosinophils # (Auto) 0.1, Basophils # (Auto) 0.0, Nucleated Red Blood Cells % (auto) 0.0, Erythrocyte Sedimentation Rate 8, Prothrombin Time 15.4H, Prothromb Time International Ratio 1.20, Activated Partial Thromboplast Time 26.1, Total Bilirubin 0.5, Direct Bilirubin 0.2, Aspartate Amino Transf (AST/SGOT) 17, Alanine Aminotransferase (ALT/SGPT) 29, Alkaline Phosphatase 38L, C-Reactive Protein, Quantitative 0.95H, Total Protein 6.3L, Albumin 3.4, Albumin/Globulin Ratio 1.2 10/07/20 19:38: POC Glucose (Misc Panel) 126H, POC Sodium (Misc Panel) 140, POC Potassium (Misc Panel) 4.2, POC Chloride (Misc Panel) 101, POC Total CO2 (Misc Panel) 28.0H, POC Blood Urea Nitrogen (Misc Panel 22, POC Ionized Calcium (Misc Panel) 4.7, POC Creatinine (Misc Panel) 1.4H, POC Hematocrit (Misc Panel) 38.0 CBC/BMP Laboratory Tests 10/07/20 19:37 Allergies Coded Allergies: banana (Verified Allergy, Unknown, 10/07/20) iodine (Verified Allergy, Unknown, 10/07/20) Home Medications Scheduled Amlodipine Besylate (Amlodipine Besylate) 10 Mg Tab, 10 MG PO QPM, (Reported) TAKES WITH DINNER Atorvastatin Calcium (Atorvastatin Calcium) 10 Mg Tab, 10 MG PO QPM, (Reported) TAKES WITH DINNER Cholecalciferol (Vitamin D3) (Vitamin D3) 1,000 Unit Tablet, 2,000 UNITS PO QHS, (Reported) Clonidine HCl (Clonidine HCl) 0.2 Mg Tab, 0.4 MG PO BID, (Reported) Digoxin (Digoxin) 125 Mcg Tablet, 125 MCG PO DAILY, (Reported) Losartan/Hydrochlorothiazide (Losartan-Hctz 50-12.5 mg Tab) 1 Each Tablet, 1 TAB PO DAILY, (Reported) Melatonin (Melatonin) 3 Mg Tab, 3 MG PO QHS, (Reported) Metformin HCl (Metformin HCl ER) 500 Mg Tab, 500 MG PO BID, (Reported) Metoprolol Tartrate (Metoprolol Tartrate) 100 Mg Tab, 100 MG PO BID, (Reported) Rivaroxaban (Xarelto) 20 Mg Tab, 20 MG PO QPM, (Reported) Vitamin B Complex (Vitamin B Complex) 1 Each Tablet, 1 TAB PO DAILY, (Reported) Scheduled PRN Acetaminophen (Acetaminophen) 500 Mg Tab, 500 MG PO Q6H PRN for PAIN, (Reported) Hydrocodone/Acetaminophen (Hydrocodone-Acetamin 7.5-325) 1 Each Tablet, 1 TAB PO Q6H PRN for PAIN, (Reported) LUI GUARDADO MD Oct 07, 2020 21:10
[2020-10-07] MEDS ORDERED: MOM 30ML SUSPENSION UDC PO PRN (21:35)
[2020-10-07] MEDS ORDERED: GLUCAGON INJ 1MG VIAL SC PRN (21:35)
[2020-10-07] MEDS ORDERED: DEXTROSE 50% 50 ML SYRINGE IV PRN (21:35)
[2020-10-07] MEDS ORDERED: MAALOX 30 ML SUSP *UDC PO PRN (21:35)
[2020-10-07] MEDS ORDERED: ACETAMINOPHEN TAB 650MG DOSE (2X325MG) PO PRN (21:35)
[2020-10-07] MEDS ORDERED: GLUCOSE 4GM CHEW TABLET PO PRN (21:35)
[2020-10-07 22:26] LABS: RSV AMPLIFICATION NEGATIVE (NEGATIVE)
--- NOTE | 2020-10-07 22:48 | HPEPDOC ---
[facility] Medical History & Physical Date of Admission Oct 07, 2020 Date of Service: Oct 07, 2020 History and Physical CHIEF COMPLAINT: Left thigh pain HISTORY OF PRESENT ILLNESS: 74-year-old male history of atrial fibrillation on Xarelto, gze-ispqydt-shhvraxpq diabetes, COPD, who presents with left thigh pain. Patient tells me that he was working in his workshop when he stumbled and ran into a heavy metal table the impact affecting the anterior aspect of his left thigh. Tells me he noticed the size of his thigh started to get larger and more tender which prompted him to present to the emergency department. Patient does have a history 2017 with similar episode where he endorses he has compartment syndrome and was treated nonoperatively and observed and was noted to have a hematoma that time affecting his right thigh. Here in the emergency department patient had an ultrasound to evaluate for compartment syndrome which revealed a large intramuscular hematoma. Orthopedic surgery Dr. Ritchie was consulted who is e valuated the patient and will serially examine the patient and manage him conservatively for now as clinically this does not look like compartment syndrome at this point in time. Patient will be admitted to the medical service for further management. On review of systems patient denies any chest pain shortness of breath abdominal pain or any other injury resulting from the impact. PAST MEDICAL/SURGICAL HISTORY: To fibrillation on Xarelto Hypertension Ufv-nbuizep-tisbmyvju diabetes COPD Umbilical hernia repair Right knee replacement Endorses history of compartment syndrome affecting his left thigh however chart review shows it was perhaps his right thigh SOCIAL HISTORY: Endorses smoking Endorses drinking wine socially Denies illicit drug use FAMILY HISTORY: Reviewed and none contributory to this admission ALLERGIES: Please see below. REVIEW OF SYSTEMS: 10 point review of systems complete all negative otherwise stated in HPI HOME MEDICATIONS: Please see below. PHYSICAL EXAMINATION: Constitutional: Awake and alert, in no apparent distress ENT: Sclera are clear. Mucosa is moist. Respiratory: Lungs CTA bilaterally. No respiratory distress. Cardiovascular: Irregular heart rate EKG shows atrial fibrillation rate 99 no murmurs appreciated Gastrointestinal: Abdomen is soft, non distended, non tender, BS present. Musculoskeletal: Examination of his left lower extremity reveals a swollen left thigh surprisingly not very tender to palpation, unable to flex and extend his l eg without much discomfort. Deep palpation is tender. Neurologic: No focal neurological deficit. Mental Status: A&O x3, normal affect Skin: Warm, dry LABORATORY DATA: See below. IMAGING: See chart CT Left lower extremity w/o contrast, Impressions: 1. 10.8 cm x 7.7 cm x 22.3 cm acute hematoma in the proximal two thirds of the anterior compartment of the left thigh, predominantly within the left rectus femoris muscle. 2. Low-attenuation in the left iliopsoas and rectus femoris muscles, which may represent muscle strains or contusions. 3. Severe osteoarthritis of the left knee, ossified bodies in the left knee, and a small left knee joint effusion. 4. Severe sigmoid diverticulosis. 5. Enlarged prostate. Duplex US left lower extremity impressions: No evidence of deep venous thrombosis of the left lower extremity femoral popliteal venous system. Popliteal cyst measures 5.3 x 2.7 x 1.6 cm. Heterogeneous complex mass in the left thigh soft tissues is intramuscular and measures 15.5 x 5.5 x 4.7 cm. This probably represents an intramuscular hematoma. MICROBIOLOGY: Please see below. ASSESSMENT/PLAN 74-year-old male sustained an injury to his left thigh resulting in intramuscular hematoma patient admitted for monitoring concern over development of compartment syndrome as he is at risk. # Left thigh intramuscular hematoma: Patient will be admitted for serial zeb toring over concern of developing of compartment syndrome. He is at risk but he currently does not clinically have compartment syndrome. Dr. Ritchie orthopedic surgery was consulted, I appreciate his recommendations. Pain control. Hold Xarelto and aspirin. # SHERRY: Cr 4.1. IVFs NS. Trend BMP. Avoid nephrotoxins. Check CPK now and in the AM, concern over developing rhando from muscle breakdown. # Atrial fibrillation: Continue rate control with beta chaim. Hold Xarelto and aspirin for now given his thigh hematoma with concern over developing compartment syndrome. # Hypertension: Continue home meds. Monitor and titrate # DM: ISS. Frequent Accu-Cheks. Hypoglycemic precautions. # COPD: Not in exacerbation. # DVT prophylaxis: SCDs/TEDs only A [facility] Hospitalist Vital Signs Vital Signs Date Time Temp Pulse Resp B/P (MAP) Pulse Ox O2 Delivery O2 Flow Rate FiO2 10/07/20 17:33 10/07/20 14:40 98.1 86 18 100 Room Air Laboratory Data Labs 24H Laboratory Tests 2 10/07/20 19:37: Immature Granulocyte % (Auto) 0.6, Neutrophils (%) (Auto) 81.9H, Lymphocytes (%) (Auto) 10.5L, Monocytes (%) (Auto) 6.3, Eosinophils (%) (Auto) 0.4, Basophils (%) (Auto) 0.3, Neutrophils # (Auto) 11.4H, Lymphocytes # (Auto) 1.5, Monocytes # (Auto) 0.9H, Eosinophils # (Auto) 0.1, Basophils # (Auto) 0.0, Nucleated Red Blood Cells % (auto) 0.0, Erythrocyte Sedimentation Rate 8, Prothrombin Time 15. 4H, Prothromb Time International Ratio 1.20, Activated Partial Thromboplast Time 26.1, Total Bilirubin 0.5, Direct Bilirubin 0.2, Aspartate Amino Transf (AST/SGOT) 17, Alanine Aminotransferase (ALT/SGPT) 29, Alkaline Phosphatase 38L, Total Creatine Kinase 39, C-Reactive Protein, Quantitative 0.95H, Total Protein 6.3L, Albumin 3.4, Albumin/Globulin Ratio 1.2 10/07/20 19:38: POC Glucose (Misc Panel) 126H, POC Sodium (Misc Panel) 140, POC Potassium (Misc Panel) 4.2, POC Chloride (Misc Panel) 101, POC Total CO2 (Misc Panel) 28.0H, POC Blood Urea Nitrogen (Misc Panel 22, POC Ionized Calcium (Misc Panel) 4.7, POC Creatinine (Misc Panel) 1.4H, POC Hematocrit (Misc Panel) 38.0 10/07/20 21:17: Coronavirus (COVID-19)(PCR) NEGATIVE, Influenza Type A (RT-PCR) NEGATIVE, Influenza Type B (RT-PCR) NEGATIVE, Respiratory Syncytial Virus (PCR) NEGATIVE CBC/BMP Laboratory Tests 10/07/20 19:37 Home Medications Scheduled Amlodipine Besylate (Amlodipine Besylate) 10 Mg Tab, 10 MG PO QPM TAKES WITH DINNER Atorvastatin Calcium (Atorvastatin Calcium) 10 Mg Tab, 10 MG PO QPM TAKES WITH DINNER Cholecalciferol (Vitamin D3) (Vitamin D3) 1,000 Unit Tablet, 2,000 UNITS PO QHS Clonidine HCl (Clonidine HCl) 0.2 Mg Tab, 0.4 MG PO BID Digoxin (Digoxin) 125 Mcg Tablet, 125 MCG PO DAILY Losartan/Hydrochlorothiazide (Losartan-Hctz 50-12.5 mg Tab) 1 Each Tablet, 1 TAB PO DAILY Melatonin (Melatonin) 3 Mg Tab, 3 MG PO QHS Metformin HCl (Metformin HCl ER) 500 Mg Tab, 500 MG PO BID Metoprolol Tartrate (Metoprolol Tartrate) 100 Mg Tab, 100 MG PO BID Rivaroxaban (Xarelto) 20 Mg Tab, 20 MG PO QPM Vitamin B Complex (Vitamin B Complex) 1 Each Tablet, 1 TAB PO DAILY Scheduled PRN Acetaminophen (Acetaminophen) 500 Mg Tab, 500 MG PO Q6H PRN for PAIN Hydrocodone/Acetaminophen (Hydrocodone-Acetamin 7.5-325) 1 Each Tablet, 1 TAB PO Q6H PRN for PAIN Allergies Coded Allergies: banana (Verified Allergy, Unknown, 10/07/20) iodine (Verified Allergy, Unknown, 10/07/20) A-FIB/CHADSVASC A-FIB History Current/History of A-Fib/PAF?: Yes Current PO Anticoag Therapy: Yes ANKUR NEVAREZ MD Oct 07, 2020 22:48
[2020-10-07 23:05] VITALS: BP 155/92
[2020-10-07] MEDS: ATORVASTATIN 10 MG TAB PO SCH (23:27)
[2020-10-07] MEDS: METOPROLOL TARTRATE 100 MG TAB PO SCH (23:27)
[2020-10-07] MEDS: NS 1,000 ML IV SCH (23:28)
[2020-10-07] MEDS: ANEXSIA, NORCO 7.5MG/325MG TABLET(HYDROCODONE/APAP) PO PRN (23:28)
[2020-10-07] MEDS: cloNIDine 0.2 MG TAB PO SCH (23:35)
[2020-10-08] MEDS: HumaLOG INSULIN (NovoLOG) PER UNIT SC SCH ×4 (00:10→17:13)
[2020-10-08 06:00] VITALS: BP 141/82
[2020-10-08 07:38] LABS: HEMATOCRIT 28.7 % (42.0-52.0); MEAN CORPUSCULAR HEMOGLOBIN 31.6 pg (27.0-33.0); MEAN CORPUSCULAR HGB CONC 34.1 g/dl (32.0-36.5); MEAN CORPUSCULAR VOLUME 92.6 fl (80.0-96.0); PLATELET COUNT, AUTOMATED 223 10^3/uL (150-450)
[2020-10-08 07:39] LABS: HEMOGLOBIN 9.8 g/dl (13.5-17.5)
[2020-10-08 07:54] LABS: CALCIUM LEVEL 8.7 MG/DL (8.8-10.2); CREATININE FOR GFR 1.29 MG/DL (0.70-1.30); GLOMERULAR FILTRATION RATE 58.1 (>42); MAGNESIUM LEVEL 1.9 MG/DL (1.8-2.4); POTASSIUM SERUM 3.5 MEQ/L (3.5-5.1)
[2020-10-08] MEDS: DOCUSATE SODIUM 100MG CAPSULE PO SCH ×2 (08:50→20:24)
[2020-10-08] MEDS: METOPROLOL TARTRATE 100 MG TAB PO SCH ×2 (08:50→20:24)
[2020-10-08] MEDS: DIGOXIN 0.125 MG TAB PO SCH (08:51)
[2020-10-08] MEDS: cloNIDine 0.2 MG TAB PO SCH ×2 (08:51→20:26)
[2020-10-08] MEDS: NS 1,000 ML IV SCH (09:00)
--- NOTE | 2020-10-08 09:11 | REP ---
INDICATION: wbc elevation COMPARISON: 09/03/2016 TECHNIQUE: Portable AP view of the chest FINDINGS: The mediastinum and cardiac silhouette are stable and within normal limits for portable technique. The lung quiñones are clear without acute consolidation, effusion, or pneumothorax. Skeletal structures are intact. IMPRESSION: No acute cardiopulmonary process appreciated. <Electronically signed by Jax Guerrero > 10/08/20 0908
--- NOTE | 2020-10-08 11:09 | IPNPDOC ---
Date Seen The patient was seen on 10/08/20. Progress Note SUBJECTIVE: Patient was seen and examined at bedside this morning. No acute events overnight. Patient is doing well, does not complain of any left thigh pain while at rest. Denies chest pain, shortness of breath, fevers, chills, nausea, vomiting and diarrhea. OBJECTIVE PHYSICAL EXAMINATION: VITAL SIGNS: please see below General: NAD, comfortable HEENT: PERRLA, EOMI, sclerae clear Neck: supple, normal ROM, no JVD Respiratory: lungs CTAB, no wheeze, no rales, no crackles CVS: RRR, normal S1, S2, no murmurs Abdo: soft, no masses, no hepatosplenomegaly, BS+, no rebound tenderness Extremities: no edema, pulses 2+. L thigh firm but compressible. MSK: no joint deformities, normal ROM Neuro: no focal neuro deficits, moving all 4 extremities, CN2-12 intact. Strength 5/5 in all 4 extremities. No nystagmus. Psych: calm, cooperative, AAO x 3 LABORATORY DATA, IMAGING STUDIES, MICROBIOLOGY: Please see below. DVT prophylaxis ordered?: SCD ASSESSMENT AND PLAN: 74-year-old male sustained an injury to his left thigh resulting in intramuscular hematoma patient admitted for monitoring concern over development of compartment syndrome as he is at risk. # Left thigh intramuscular hematoma: admitted with concern for compartment syndrome. Dr. Ritchie orthopedic surgery was consulted. patient was re-evaluated this morning, no compartment syndrome. Not a surgical candidate. Pain control. Hold Xarelto and aspirin until 10/[address] Ritchie. #Anemia: hgb drop from 12.8 to 9.8. In setting of IVF and hematoma. Monitor HH q12h. # SHERRY: Cr 1.4. IVFs NS. Trend BMP. Avoid nephrotoxins. CK wnl. Cr normalized. # Atrial fibrillation: Continue rate control with beta chaim. Hold Xarelto and aspirin for now given his thigh hematoma with concern over developing compartment syndrome. Resume xarelto and ASA on 10/09/20. # Hypertension: Continue home meds. Monitor and titrate # DM: ISS. Frequent Accu-Cheks. Hypoglycemic precautions. # COPD: Not in exacerbation. # DVT prophylaxis: SCDs/TEDs only VS, I&O, 24H, Fishbone Vital Signs/I&O Vital Signs Date Time Temp Pulse Resp B/P (MAP) Pulse Ox O2 Delivery O2 Flow Rate FiO2 10/08/20 08:51 98 10/08/20 08:51 140/80 10/08/20 06:00 99.3 18 97 Room Air I&O- Last 24 Hours up to 6 AM 10/08/20 06:00 Intake Total 1360 ml Output Total 225 ml Balance 1135 ml Laboratory Data 24H LABS Laboratory Tests 2 10/07/20 19:37: Immature Granulocyte % (Auto) 0.6, Neutrophils (%) (Auto) 81.9H, Lymphocytes (%) (Auto) 10.5L, Monocytes (%) (Auto) 6.3, Eosinophils (%) (Auto) 0.4, Basophils ( %) (Auto) 0.3, Neutrophils # (Auto) 11.4H, Lymphocytes # (Auto) 1.5, Monocytes # (Auto) 0.9H, Eosinophils # (Auto) 0.1, Basophils # (Auto) 0.0, Nucleated Red Blood Cells % (auto) 0.0, Erythrocyte Sedimentation Rate 8, Prothrombin Time 15.4H, Prothromb Time International Ratio 1.20, Activated Partial Thromboplast Time 26.1, Total Bilirubin 0.5, Direct Bilirubin 0.2, Aspartate Amino Transf (AST/SGOT) 17, Alanine Aminotransferase (ALT/SGPT) 29, Alkaline Phosphatase 38L, Total Creatine Kinase 39, C-Reactive Protein, Quantitative 0.95H, Total Protein 6.3L, Albumin 3.4, Albumin/Globulin Ratio 1.2 10/07/20 19:38: POC Glucose (Misc Panel) 126H, POC Sodium (Misc Panel) 140, POC Potassium (Misc Panel) 4.2, POC Chloride (Misc Panel) 101, POC Total CO2 (Misc Panel) 28.0H, POC Blood Urea Nitrogen (Misc Panel 22, POC Ionized Calcium (Misc Panel) 4.7, POC Creatinine (Misc Panel) 1.4H, POC Hematocrit (Misc Panel) 38.0 10/07/20 21:17: Coronavirus (COVID-19)(PCR) NEGATIVE, Influenza Type A (RT-PCR) NEGATIVE, Influenza Type B (RT-PCR) NEGATIVE, Respiratory Syncytial Virus (PCR) NEGATIVE 10/07/20 22:55: Total Creatine Kinase 31L 10/07/20 23:59: Bedside Glucose (Misc Panel) 160H 10/08/20 05:43: Bedside Glucose (Misc Panel) 111H 10/08/20 07:07: Nucleated Red Blood Cells % (auto) 0.0, Anion Gap 7L, Glomerular Filtration Rate 58.1, Calcium Level 8.7L, Magnesium Level 1.9, Total Creatine Kinase 32L 10/08/20 10:37: Lab Scanned Report Miscellaneous Lab CBC/BMP Laboratory Tests 10/07/20 19:37 10/08/20 07:07 CONTRERAS LAO MD Oct 08, 2020 11:09
--- NOTE | 2020-10-08 12:46 | IPNPDOC ---
Text Note Date of Service The patient was seen on 10/08/20. NOTE The patient was reevaluated this morning at approximately 9 AM. He states that he hasn't slept well with no significant pain or discomfort. He was quite hungry and thirsty as he had been nothing by mouth. He feels as if the swelling has gone down in the leg. On physical examination, the left thigh was examined. The thigh is definitely more compressible this morning compared to yesterday evening. The left lower extremity is neurovascularly intact compared to the right lower extremity with palpable posterior tibial and dorsalis pedis pulses. Overall, the patient will have discomfort and pain and restricted range of motion associated with the large hematoma in his thigh. This will be treated conservatively. He'll take a long period of time for this to be reabsorbed. He will require physical therapy and range of motion exercises. He may be weightbearing as tolerated with a walker for balance. His diabetic diet was resumed, this morning as well. I will bring him some exercises to practice at home over the next few weeks. He can follow-up in the clinic in about 2 weeks and at that point, I will provide him with formal physical therapy prescription. I've spoken to the hospitalist service. They plan on likely discharge tomorrow morning, if his blood work is appropriate. VS,Lane, I+O VS, Lane, I+O Laboratory Tests 10/07/20 19:37 10/08/20 07:07 Vital Signs Date Time Temp Pulse Resp B/P (MAP) Pulse Ox O2 Delivery O2 Flow Rate FiO2 10/08/20 08:51 98 10/08/20 08:51 140/80 10/08/20 06:00 99.3 18 97 Room Air I&O- Last 24 Hours up to 6 AM 10/08/20 06:00 Intake Total 1360 ml Output Total 225 ml Balance 1135 ml LUI GUARDADO MD Oct 08, 2020 12:46
[2020-10-08 14:00] VITALS: BP 116/66
[2020-10-08 16:05] LABS: HEMOGLOBIN 9.2 g/dl (13.5-17.5); MEAN CORPUSCULAR HEMOGLOBIN 31.9 pg (27.0-33.0); MEAN CORPUSCULAR HGB CONC 34.1 g/dl (32.0-36.5); MEAN CORPUSCULAR VOLUME 93.8 fl (80.0-96.0); PLATELET COUNT, AUTOMATED 210 10^3/uL (150-450); RED BLOOD COUNT 2.88 10^6/uL (4.30-6.10)
[2020-10-08 17:11] LABS: WHITE BLOOD COUNT 14.9 10^3/uL (4.0-10.0)
[2020-10-08 17:16] LABS: EOSINOPHILS 1 % (0-3); LYMPHOCYTES 13 % (16-44); MONOCYTES 7 % (0-5); NEUTROPHILS 76 % (28-66)
[2020-10-08 17:17] LABS: PLATELET ESTIMATE NORMAL (NORMAL)
[2020-10-08] MEDS: ATORVASTATIN 10 MG TAB PO SCH (17:27)
[2020-10-08] MEDS: ANEXSIA, NORCO 7.5MG/325MG TABLET(HYDROCODONE/APAP) PO PRN (21:27)
[2020-10-08 22:00] VITALS: BP 124/79
[2020-10-09] MEDS: ANEXSIA, NORCO 7.5MG/325MG TABLET(HYDROCODONE/APAP) PO PRN ×2 (05:30→12:13)
[2020-10-09 06:00] VITALS: BP 130/70
[2020-10-09 07:19] LABS: BASO # 0.1 10^3/uL (0.0-0.2); BASO % 0.4 % (0.0-1.0); EOS % 0.2 % (0.0-3.0); HEMATOCRIT 24.6 % (42.0-52.0); HEMOGLOBIN 8.4 g/dl (13.5-17.5); LYMPH % 20.6 % (24.0-44.0); MEAN CORPUSCULAR HEMOGLOBIN 31.6 pg (27.0-33.0); MEAN CORPUSCULAR HGB CONC 34.1 g/dl (32.0-36.5); MEAN CORPUSCULAR VOLUME 92.5 fl (80.0-96.0); MONO # 1.8 10^3/uL (0.0-0.8); MONO % 12.1 % (2.0-8.0); NEUTROPHILS # 9.7 10^3/uL (1.5-8.5); NEUTROPHILS % 66.1 % (36.0-66.0); PLATELET COUNT, AUTOMATED 196 10^3/uL (150-450); RED BLOOD COUNT 2.66 10^6/uL (4.30-6.10)
[2020-10-09 07:45] LABS: WHITE BLOOD COUNT 14.7 10^3/uL (4.0-10.0)
[2020-10-09 07:49] LABS: BLOOD UREA NITROGEN 19 MG/DL (7-18); CALCIUM LEVEL 7.9 MG/DL (8.8-10.2); CARBON DIOXIDE LEVEL 29 MEQ/L (21-32); CHLORIDE LEVEL 107 MEQ/L (98-107); CREATININE FOR GFR 0.78 MG/DL (0.70-1.30); GLOMERULAR FILTRATION RATE > 60.0 (>42); GLUCOSE, FASTING 122 MG/DL (70-100); POTASSIUM SERUM 3.5 MEQ/L (3.5-5.1); SODIUM LEVEL 142 MEQ/L (136-145)
--- NOTE | 2020-10-09 07:49 | ECGEPIP ---
[facility] - ED Test Date: 2020-10-07 Pat Name: SWAPNA AYON Department: Room: [place] [address] Gender: Male [employer] Operator: er : [id number] Requested By: SMITA Leung PA-C Order Number: [id number] Reading MD: Angel Hernandez Measurements Intervals [place] Rate: 99 P: CO: QRS: -8 QRSD: 90 T: -33 QT: 368 QTc: 472 Interpretive Statements Atrial fibrillation Low voltage QRS INCOMPLETE RIGHT BUNDLE BRANCH BLOCK SIMILAR TO 03/26/15 Electronically Signed on 10-09-2020 7:49:08 EDT by Angel Hernandez
[2020-10-09 07:50] LABS: ALBUMIN 2.9 GM/DL (3.2-5.2); ALT/SGPT 20 U/L (12-78); BILIRUBIN,TOTAL 0.6 MG/DL (0.2-1.0); TOTAL PROTEIN 5.3 GM/DL (6.4-8.2)
[2020-10-09] MEDS ORDERED: ASPIRIN 81MG ENTERIC TABLET PO SCH (09:00)
[2020-10-09] MEDS: DIGOXIN 0.125 MG TAB PO SCH (09:10)
[2020-10-09] MEDS: DOCUSATE SODIUM 100MG CAPSULE PO SCH (09:11)
[2020-10-09] MEDS: cloNIDine 0.2 MG TAB PO SCH (09:11)
[2020-10-09] MEDS: METOPROLOL TARTRATE 100 MG TAB PO SCH (09:11)
[2020-10-09] MEDS: HumaLOG INSULIN (NovoLOG) PER UNIT SC SCH ×3 (09:12→17:30)
[2020-10-09] MEDS ORDERED: HYDR-3713 PO (10:39)
[2020-10-09] MEDS ORDERED: ACET1TAB55 PO (10:39)
--- NOTE | 2020-10-09 10:51 | DS.PDOC ---
Discharge Summary General Date of Admission Oct 07, 2020 at 21:32 Date of Discharge 10/09/20 Discharge Summary PROCEDURES PERFORMED DURING STAY: [None]. COMPLICATIONS/CHIEF COMPLAINT: Hematoma. HISTORY OF PRESENT ILLNESS: 74-year-old male history of atrial fibrillation on Xarelto, nku-ehpnecq-ojygxbadp diabetes, COPD, who presents with left thigh pain. Patient tells me that he was working in his workshop when he stumbled and ran into a heavy metal table the impact affecting the anterior aspect of his left thigh. Tells me he noticed the size of his thigh started to get larger and more tender which prompted him to present to the emergency department. Patient does have a history 2017 with similar episode where he endorses he has compartment syndrome and was treated nonoperatively and observed and was noted to have a hematoma that time affecting his right thigh. Here in the emergency department patient had an ultrasound to evaluate for compartment syndrome which revealed a large intramuscular hematoma. Orthopedic surgery Dr. Ritchie was consulted who is evaluated the patient and will serially examine the patient and manage him conservatively for now as clinically this does not look like ronit rtment syndrome at this point in time. Patient will be admitted to the medical service for further management. On review of systems patient denies any chest pain shortness of breath abdominal pain or any other injury resulting from the impact. HOSPITAL COURSE: # Left thigh intramuscular hematoma: admitted with concern for compartment syndrome. Dr. Ritchie orthopedic surgery was consulted. patient was re-evaluated this morning, no compartment syndrome. Not a surgical candidate. Pain control. H old Xarelto and aspirin until 10/[address] Ritchie. #Leukocytosis: afebrile, denies cough, dysuria. Likely reactive related to hematoma. #Anemia: hgb drop from 12.8 to 9.8. In setting of IVF and hematoma. # SHERRY: Cr 1.4. IVFs NS. Trend BMP. Avoid nephrotoxins. CK wnl. Cr normalized. # Atrial fibrillation: Continue rate control with beta chaim. Hold Xarelto and aspirin for now given his thigh hematoma with concern over developing compartment syndrome. Resume xarelto and ASA on 10/09/20. # Hypertension: Continue home meds. Monitor and titrate # DM: ISS. Frequent Accu-Cheks. Hypoglycemic precautions. # COPD: Not in exacerbation. # DVT prophylaxis: SCDs/TEDs only DISCHARGE MEDICATIONS: Please see below. ALLERGIES: Please see below. PHYSICAL EXAMINATION ON DISCHARGE: VITAL SIGNS: please see below General: NAD, comfortable HEENT: PERRLA, EOMI, sclerae clear Neck: supple, normal ROM, no JVD Respiratory: lungs CTAB, no wheeze, no rales, no crackles CVS: RRR, normal S1, S2, no murmurs Abdo: soft, no masses, no hepatosplenomegaly, BS+, no rebound tenderness Extremities: no edema, pulses 2+. L thigh firm but compressible. MSK: no joint deformities, normal ROM Neuro: no focal neuro deficits, moving all 4 extremities, CN2-12 intact. Strength 5/5 in all 4 extremities. No nystagmus. Psych: calm, cooperative, AAO x 3 LABORATORY DATA: Please see below. IMAGING: Venous duplex (10/07/20): No evidence of deep venous thrombosis of the left lower extremity femoral popliteal venous system. Popliteal cyst measures 5.3 x 2.7 x 1.6 cm. Heterogeneous complex mass in the left thigh soft tissues is intramuscular and measures 15.5 x 5.5 x 4.7 cm. This probably represents an intramuscular hematoma. L lower extremity CT (10/07/20): 1. 10.8 cm x 7.7 cm x 22.3 cm acute hematoma in the proximal two thirds of the anterior compartment of the left thigh, predominantly within the left rectus femoris muscle. 2. Low-attenuation in the left iliopsoas and rectus femoris muscles, which may represent muscle strains or contusions. 3. Severe osteoarthritis of the left knee, ossified bodies in the left knee, and a small left knee joint effusion. 4. Severe sigmoid diverticulosis. 5. Enlarged prostate. CXR (10/08/20): No acute cardiopulmonary process appreciated. L lower ext duplex (10/09/20); Negative left lower extremity duplex venous ultrasound. No evidence of deep vein thrombosis. Left Rudd's cyst again seen. PROGNOSIS: good ACTIVITY: [As tolerated]. DIET: as tolerated. DISCHARGE PLAN: DC home with services. Plan for f/u with Dr. Ritchie 1-2 weeks. F/u PCP 3-5 days. DISPOSITION: DC home with services. DISCHARGE INSTRUCTIONS: 1. F/u with PCP 3-5 days 2. F/u with orthopedic surgery, Dr. Ritchie in 2 weeks 3. Please take medications as prescribed 4. If you develop worsening L leg pain, chest pain, bleeding, shortness of breath, fever, or otherwise worsening of your symptoms, please call 911 or return to the nearest ER. TO FOLLOW UP OUTPATIENT - please check CBC for Hgb. DISCHARGE CONDITION: [Stable]. TIME SPENT ON DISCHARGE: 35 minutes Vital Signs/I&Os Vital Signs Date Time Temp Pulse Resp B/P (MAP) Pulse Ox O2 Delivery O2 Flow Rate FiO2 10/09/20 09:11 106 124/83 10/09/20 06:00 99.3 18 96 Room Air I&O- Last 24 Hours up to 6 AM 10/09/20 06:00 Intake Total 1920 ml Output Total 1450 ml Balance 470 ml Laboratory Data Labs 24H Laboratory Tests 2 10/08/20 11:13: Bedside Glucose (Misc Panel) 153H 10/08/20 11:30: Urine Color YELLOW, Urine Appearance HAZY, Urine pH 5.0, Urine Specific [place] 1.019, Urine Protein 1+H, Urine Glucose (UA) NEGATIVE, Urine Ketones NEGATIVE, Urine Blood NEGATIVE, Urine Nitrite NEGATIVE, Urine Bilirubin NEGATIVE, Urine Urobilinogen 0.2, Urine Leukocyte Esterase NEGATIVE, Urine WBC (Auto) 2, Urine RBC (Auto) 1, Urine Hyaline Casts (Auto) 6, Urine Bacteria (Auto) NEGATIVE, Urine Squamous Epithelial Cells 0, Urine Mucus (Auto) SMALL, Urine Sperm (Auto) 10/08/20 15:50: Neutrophils (%) (Auto) , Nucleated Red Blood Cells % (auto) 0.0, Neutrophils 76H, Band Neutrophils 3, Lymphocytes (Manual) 13L, Monocytes (Manual) 7H, Eosinophils (Manual) 1, Platelet Estimate NORMAL 10/08/20 16:51: Bedside Glucose (Misc Panel) 101 10/08/20 20:22: Bedside Glucose (Misc Panel) 172H 10/09/20 06:01: Immature Granulocyte % (Auto) 0.6, Neutrophils (%) (Auto) 66.1H, Lymphocytes (%) (Auto) 20.6L, Monocytes (%) (Auto) 12.1H, Eosinophils (%) (Auto) 0.2, Basophils (%) (Auto) 0.4, Neutrophils # (Auto) 9.7H, Lymphocytes # (Auto) 3.0, Monocytes # (Auto) 1.8H, Eosinophils # (Auto) 0.0, Basophils # (Auto) 0.1, Nucleated Red Blood Cells % (auto) 0.0, Anion Gap 6L, Glomerular Filtration Rate > 60.0, Calcium Level 7.9L, Magnesium Level 2.0, Total Bilirubin 0.6, Aspartate Amino Transf (AST/SGOT) 11, Alanine Aminotransferase (ALT/SGPT) 20, Alkaline Phosphatase 35L, Total Protein 5.3L, Albumin 2.9L, Albumin/Globulin Ratio 1.2 CBC/BMP Laboratory Tests 10/08/20 15:50 10/09/20 06:01 FSBS Laboratory Tests Test 10/08/20 11:13 10/08/20 16:51 10/08/20 20:22 Range/Units Bedside Glucose (Misc Panel) 153 101 172 83-110 MG/DL Discharge Medications Scheduled Amlodipine Besylate (Amlodipine Besylate) 10 Mg Tab, 10 MG PO QPM, (Reported) TAKES WITH DINNER Atorvastatin Calcium (Atorvastatin Calcium) 10 Mg Tab, 10 MG PO QPM, (Reported) TAKES WITH DINNER Cholecalciferol (Vitamin D3) (Vitamin D3) 1,000 Unit Tablet, 2,000 UNITS PO QHS, (Reported) Clonidine HCl (Clonidine HCl) 0.2 Mg Tab, 0.4 MG PO BID, (Reported) Digoxin (Digoxin) 125 Mcg Tablet, 125 MCG PO DAILY, (Reported) Melatonin (Melatonin) 3 Mg Tab, 3 MG PO QHS, (Reported) Metformin HCl (Metformin HCl ER) 500 Mg Tab, 500 MG PO BID, (Reported) Metoprolol Tartrate (Metoprolol Tartrate) 100 Mg Tab, 100 MG PO BID, (Reported) Rivaroxaban (Xarelto) 20 Mg Tab, 20 MG PO QPM, (Reported) Vitamin B Complex (Vitamin B Complex) 1 Each Tablet, 1 TAB PO DAILY, (Reported) Scheduled PRN Acetaminophen (Acetaminophen) 325 Mg Tablet, 650 MG PO Q4H PRN for PAIN OR FEVER Hydrocodone/Acetaminophen (Hydrocodone-Acetamin 7.5-325) 1 Each Tablet, 1 TAB PO Q6H PRN for PAIN, (Reported) Hydrocodone/Acetaminophen (Hydrocodone-Acetamin 5-325 mg) 1 Each Tablet, 1 TAB PO TIDP PRN for pain Allergies Coded Allergies: banana (Verified Allergy, Unknown, 10/07/20) iodine (Verified Allergy, Unknown, 10/07/20) CONTRERAS LAO MD Oct 09, 2020 10:51
[2020-10-09 14:00] VITALS: BP 110/64
--- NOTE | 2020-10-09 16:38 | REP ---
INDICATION: r/o DVT. COMPARISON: Comparison study 2 days prior, October 07, 2020.. TECHNIQUE: Left lower extremity duplex venous ultrasound. FINDINGS: The deep veins are anechoic and fully compressible from the groin to the popliteal fossa in the left lower extremity. Color flow imaging is homogeneous. Spectral Doppler interrogation demonstrates intact respiratory variation in flow and normal manual augmentation of flow. There is no evidence of deep vein thrombosis. There is a 6.0 x 2.4 x 4.0 cm fluid collection in the posteromedial popliteal soft tissues on the left consistent with a Rudd's cyst. The recently noted left thigh mass/hematoma was not seen or evaluated with the current exam. IMPRESSION: Negative left lower extremity duplex venous ultrasound. No evidence of deep vein thrombosis. Left Rudd's cyst again seen. <Electronically signed by Fred Mirza > 10/09/20 [id number]
[2020-10-09 17:32] VITALS: BP 139/71
[2020-10-09] MEDS: ATORVASTATIN 10 MG TAB PO SCH (17:32)
[2020-10-09] MEDS ORDERED: RIVAROXABAN 20 MG TAB (XARELTO) PO SCH (18:00)
[2020-10-09] MEDS ORDERED: HumaLOG INSULIN (NovoLOG) PER UNIT SC SCH (21:00)
== END 2020-10-09 18:50 | disposition home health service (06) | DRG 813 ==
LOC: M ED 14:39 → M ED INP 21:32 → ENRESERV 22:39 → M MS5PR 23:08
PROVIDERS: ADMIT Family Medicine; ATTEND Family Medicine
DX: D68.32 Hemorrhagic disorder due to extrinsic circulating anticoagulants (principal); N17.9 Acute kidney failure, unspecified; S70.12XA Contusion of left thigh, initial encounter; W22.03XA Walked into furniture, initial encounter; Y92.9 Unspecified place or not applicable; I48.91 Unspecified atrial fibrillation; I10 Essential (primary) hypertension; E11.9 Type 2 diabetes mellitus without complications; J44.9 Chronic obstructive pulmonary disease, unspecified; Z96.651 Presence of right artificial knee joint; F17.200 Nicotine dependence, unspecified, uncomplicated; Z20.822 Contact with and (suspected) exposure to COVID-19; Z79.01 Long term (current) use of anticoagulants; Z79.899 Other long term (current) drug therapy; Z88.8 Allergy status to other drugs, medicaments and biological substances; Z91.018 Allergy to other foods; Y93.89 Activity, other specified

== ENCOUNTER → 2020-10-22 | Outpatient (CLI) | payer MEDICARE ==
[~2020-10-22] MED LIST changes: +ACET1TAB55 PO; +D31000TA2 PO; +DIGO0.123 PO; +GARL1000 PO; +HYDR-4514 PO; +LOSA50TA5 PO; +VITATAB73 PO
== END ==
LOC: M SOG 11:43
PROVIDERS: ATTEND Orthopaedic Surgery Adult Reconstructive Orthopaedic Surgery
DX: Z00.00 Encounter for general adult medical examination without abnormal findings (principal)